=== PATIENT | male | born 1975 ===

== ENCOUNTER → 2017-06-02 06:59 | Outpatient (CLI) | payer OTHER | END | disposition home or self-care (01) | LOC: LAB 06:59 | DX: K57.32 Diverticulitis of large intestine without perforation or abscess without bleeding (principal); K92.1 Melena; K64.2 Third degree hemorrhoids ==

== ENCOUNTER 2017-06-11 05:28 | Day surgery (SDC) | payer OTHER | END 2017-06-11 09:00 | disposition home or self-care (01) | LOC: AMB-ENDOS 05:28 | DX: K57.32 Diverticulitis of large intestine without perforation or abscess without bleeding (principal); K64.1 Second degree hemorrhoids; E66.8 Other obesity; G47.33 Obstructive sleep apnea (adult) (pediatric); J45.20 Mild intermittent asthma, uncomplicated; D64.89 Other specified anemias ==

== ENCOUNTER 2021-01-29 07:18 | Day surgery (SDC) | payer OTHER ==
[2021-01-29] MEDS ORDERED: ULTRACET PO (12:33)
== END 2021-01-29 15:25 | disposition home or self-care (01) ==
LOC: CIR.AMB 07:18
PROVIDERS: ATTEND Surgery
DX: D17.1 Benign lipomatous neoplasm of skin and subcutaneous tissue of trunk (principal); Z20.822 Contact with and (suspected) exposure to COVID-19

== ENCOUNTER 2021-02-17 19:53 | Emergency (ER) | payer OTHER ==
[~2021-02-17] VITALS: Ht 172.7 cm; Wt 111.1 kg
[~2021-02-17 19:53] MED LIST: ULTRACET PO
== END 2021-02-17 23:10 | disposition home or self-care (01) ==
LOC: ER 19:53
DX: R10.9 Unspecified abdominal pain (principal)